=== PATIENT | male | born 1995 | race African-American/Black ===

== ENCOUNTER 2020-05-15 12:31 | Emergency (ER) | payer OTHER ==
[~2020-05-15] VITALS: Ht 167.6 cm; Wt 75.0 kg
[2020-05-15] MEDS ORDERED: HYDROmorphone 2 MG/ML VIAL IM ONE (14:45)
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
[2020-05-15 15:05] LABS: BILIRUBIN,URINE SMALL (NEG); CLARITY,URINE TURBID; COLOR,URINE AMBER; NITRITE,URINE NEGATIVE (NEG); PROTEIN,URINE >=300 mg/dL (NEG-TRACE)
[2020-05-15 15:16] LABS: BACTERIA,URINE MANY /HPF (0-FEW); RBC,URINE TNTC /HPF (0-2); WBC,URINE FIELD OBSCURED /HPF (0-4)
[2020-05-15] MEDS ORDERED: SULF1TAB24 PO (15:26)
[2020-05-15 15:39] VITALS: BP 115/71
== END 2020-05-15 15:41 | disposition home or self-care (01) ==
LOC: ER 12:31
DX: N39.0 Urinary tract infection, site not specified (principal); G89.29 Other chronic pain; Z86.718 Personal history of other venous thrombosis and embolism
CPT/HCPCS: 81001; 87086; 96372; 99283; J1170